=== PATIENT | female | born 1975 | race Caucasian/White ===

== ENCOUNTER 2019-09-25 11:51 | Inpatient (IN) | payer OTHER ==
[2019-09-25 12:30] VITALS: BMI 21.6
--- NOTE | 2019-09-25 13:47 | HP ---
COWS - Scale Resting Pulse: 0= [place] 80 or Below Sweatin= Chills/Flushing Restless Observation: 1= Difficult to Sit Still Pupil Size: 0= Normal to Room Light Bone or Joint Aches: 1= Mild Discomfort Runny Nose/ Eye Tearin= Runny Nose/Eyes GI Upset > 30mins: 2= Nausea/Diarrhea Tremor Observation: 2= Slight Tremor Visible Yawning Observation: 1= 1-2x During Session Anxiety or Irritability: 1=Feels Anxious/Irritable Goose Flesh Skin: 0=Smooth Skin COWS Score: 11 CIWA Score Nausea/Vomitin Muscle Tremors: 3 Anxiety: 2 Agitation: 3 Paroxysmal Sweats: No Perspiration Orientation: 1-Uncertain about Date Tacttile Disturbances: 0-None Auditory Disturbances: 0-None Visual Disturbances: 0-None Headache: 2-Mild CIWA-Ar Total Score: 14 - Admission Criteria OASAS Guidelines: Admission for Medically Managed Detox: Requires at least one of the followin. CIWA greater than 12 2. Seizures within the past 24 hours 3. Delirium tremens within the past 24 hours 4. Hallucinations within the past 24 hours 5. Acute intervention needed for co occurring medical disorder 6. Acute intervention needed for co occurring psychiatric disorder 7. Severe withdrawal that cannot be handled at a lower level of care (continued vomiting, continued diarrhea, abnormal vital signs) requiring intravenous medication and/or fluids 8. Patient presents the following: CIWA greater than 12 Admission Criteria Met: Admission criteria met Admitting History and Physical - Admission History Source: Patient Limitations to Obtaining History: No Limitations - Past Medical History Psych: Yes: Addictions, Bipolar Musculoskeletal: Yes: Chronic low back pain Admission [facility] Chief Complaint: I have to stop, for my son, he's not stupid, he knows something is going on Allergies/Adverse Reactions: Allergies Allergy/AdvReac Type Severity Reaction Status Date / Time amoxicillin Allergy Intermediate Hives Verified 09/25/19 12:20 History of Present Illness: 44 yo woman here for detox from opiates and alcohol. Noted to be prescribed hydrocodone - she states she has chronic pain from back, shoulder and ankle - states she does not abuse this nor does she abuse the alprazolam - states takes as prescribed. She does use heroin - not sure why buprenorphine is in her urine tox. Also uses cocaine and alcohol. Last time here was 2010 - she did okay, was in [facility] - released in may 2017- was in [place] for a while with her mother - came to [place] in June 2019. She relapsed two years ago. Never on methadone or suboxone program. Patient lives in a house, she is not on disability. [facility] Others' Prescriptions Patient Name: Henna Fritz Date: 1975 Address: [address] [place], [place] [address], [place] [address] Sex: Female Rx Written Rx Dispensed Drug Quantity Days Supply Prescriber Name 09/15/2019 09/15/2019 hydrocodone-acetaminophen 10-325 mg tablet 120 30 Mendez Harman MD 08/17/2019 08/17/2019 hydrocodone-acetaminophen 10-325 mg tablet 120 30 Mendez Harman MD 07/16/2019 07/18/2019 hydrocodone-acetaminophen 10-325 mg tablet 120 30 Mendez Harman MD 06/18/2019 06/18/2019 hydrocodone-acetaminophen 10-325 mg tablet 120 30 Mendez Harman MD 02/15/2019 02/16/2019 hydrocodone-acetaminophen 10-325 mg tablet 120 30 Mendez Harman MD 01/25/2019 01/27/2019 hydrocodone-acetaminophen 10-325 mg tablet 60 15 Mendez Harman MD 01/14/2019 01/14/2019 alprazolam 1 mg tablet 30 30 Long, Janes Patient Name: Henna Fritz Date: 1975 Address: [address] [place] [id number] Sex: Female Rx Written Rx Dispensed Drug Quantity Days Supply Prescriber Name 08/20/2019 08/22/2019 alprazolam 1 mg tablet 30 30 Chandani, Janes 07/21/2019 07/23/2019 alprazolam 1 mg tablet 30 30 Chandani, Janes 06/22/2019 06/22/2019 alprazolam 1 mg tablet 30 30 Chandani, Janes 02/17/2019 02/18/2019 alprazolam 1 mg tablet 30 30 Chandani, Janes 12/30/2018 12/31/2018 hydrocodone-acetaminophen 10-325 mg tablet 98 25 Mendez Harman MD 12/16/2018 12/18/2018 hydrocodone-acetaminophen 7.5-325 mg tablet 60 30 Cresencio Vega MD 12/14/2018 12/14/2018 alprazolam 1 mg tablet 30 30 Chandwild, Janes 11/16/2018 11/18/2018 hydrocodone-acetaminophen 10-325 mg tablet 60 30 Silvia, Cresencio Perez MD 11/11/2018 11/13/2018 alprazolam 1 mg tablet 30 30 Chandani, Janes 10/14/2018 10/19/2018 hydrocodone-acetaminophen 10-325 mg tablet 60 30 Silvia, Cresencio Perez MD 10/13/2018 10/14/2018 alprazolam 1 mg tablet 30 30 Chandani, Janes * - Drugs marked with an asterisk are compound drugs. If the compound drug is made up of more than one controlled substance, then each controlled substance will be a separate row in the table. Exam Limitations: No Limitations - Ebola screening Have you traveled outside of the country in the last 21 days: No Have you had contact with anyone from an Ebola affected area: No Have you been sick,other than usual withdrawal symptoms: No Do you have a fever: No - Review of Systems Constitutional: Chills, Loss of Appetite, Changes in sleep, Weakness, Unintentional Wgt. Loss EENT: reports: Nose Congestion Respiratory: reports: No Symptoms reported Cardiac: reports: No Symptoms Reported GI: reports: Poor Appetite, Indigestion : reports: No Symptoms Reported Musculoskeletal: reports: Back Pain, Joint Pain, Muscle Pain Integumentary: reports: Bruising Neuro: reports: Headache, Tremors, Weakness Endocrine: reports: No Symptoms Reported Hematology: reports: No Symptoms Reported Psychiatric: reports: Judgement Intact, Mood/Affect Appropiate, Orientated x3, Anxious Other Systems: Reviewed and Negative Patient History - Patient Medical History Hx Anemia: No Hx Asthma: Yes Hx Chronic Obstructive Pulmonary Disease (COPD): No Hx Cancer: No Hx Congestive Heart Failure: No Hx Hypertension: No Hx Hypercholesterolemia: No HX Cerebrovascular Accident: No Hx Seizures: No Hx Dementia: No Hx Diabetes: No Hx Gastrointestinal Disorders: Yes (GERD) Hx Liver Disease: No Hx Genitourinary Disorders: No Hx Sexually Transmitted Disorders: No Hx Renal Disease (ESRD): No Hx Thyroid Disease: No Hx Human Immunodeficiency Virus (HIV): No Hx Hepatitis C: Yes (treated 2008) Hx Depression: Yes (ptsd, on meds) Hx Suicide Attempt: Yes (many years ago as teen) Hx Bipolar Disorder: Yes (hospitalized 2017) Hx Schizophrenia: No Other Medical History: back pain spondylosis,DDD,right rotator cuff tear; rt ankle pain (chronic) - Patient Surgical History Hx Orthopedic Surgery: Yes (left thigh stitches from barbed wire injury) - PPD History Previous Implant?: Yes Documented Results: Negative w/o proof Implanted On Prior [facility] Admission?: Yes PPD to be Administered?: Yes - Reproductive History Patient is a Female of Child Bearing Age (11 -55 yrs old): Yes - Smoking Cessation Smoking history: Current every day smoker Have you smoked in the past 12 months: Yes Aproximately how many cigarettes per day: 10 Initiated information on smoking cessation: Yes 'Breaking Loose' booklet given: 09/25/19 (give on floor) - Substance & Tx. History Hx Alcohol Use: Yes Hx Substance Use: Yes Substance Use Type: Alcohol, Cocaine, Heroin Hx Substance Use Treatment: Yes - Substances abused Alcohol Frequency: 3-6 times per week Amount used: 3 six oz glasses of vodka Age of first use: 10 (states 3 -4x/week) Date of last use: 09/14/19 Heroin Substance route: Injection Frequency: Daily Amount used: 5-10 bags Age of first use: 17 Date of last use: 09/24/19 Marijuana/Hashish Substance route: Oral Frequency: 1-2 times per week Amount used: 1 joint Age of first use: 10 Date of last use: 09/18/19 Cocaine Substance route: Smoking Frequency: Daily Amount used: 1/2 gm Age of first use: 17 Date of last use: 09/24/19 Admission Physical Exam S - Vital Signs Vital Signs: Vital Signs - 24 hr 09/25/19 12:26 Temperature 97.0 F L Pulse Rate 73 Respiratory 16 Rate Blood Pressure 124/74 - Physical General Appearance: Yes: Nourished, Appropriately Dressed, Moderate Distress, Thin, Anxious HEENTM: Yes: Hearing grossly Normal, Normocephalic, Normal Voice, Nasal Congestion, Rhinorrhea Respiratory: Yes: Normal Breath Sounds, No Respiratory Distress Neck: Yes: No masses,lesions,Nodules Breast: Yes: Breast Exam Deferred Cardiology: Yes: Regular Rhythm, Regular Rate Abdominal: Yes: Flat, Soft Genitourinary: Yes: Within Normal Limits Back: Yes: Normal Inspection Musculoskeletal: Yes: Gait Steady, Joint Stiffness Extremities: Yes: Normal Inspection, Non-Tender, Tremors, Other (right shoulder with limitted ROM) Neurological: Yes: Fully Oriented, Alert, Normal Mood/Affect, Normal Response Integumentary: Yes: Normal Color, Warm, Track [place], Other (bruising both legs - states due to falls) Lymphatic: Yes: Within Normal Limits - Diagnostic (1) Opioid dependence, uncomplicated Current Visit: Yes Status: Chronic (2) Alcohol dependence, uncomplicated Current Visit: Yes Status: Chronic (3) Nicotine dependence Current Visit: Yes Status: Chronic Qualifiers: Nicotine product type: cigarettes Substance use status: uncomplicated Qualified Code(s): F17.210 - Nicotine dependence, cigarettes, uncomplicated (4) Cocaine dependence Current Visit: Yes Status: Chronic Qualifiers: Substance use status: uncomplicated Qualified Code(s): F14.20 - Cocaine dependence, uncomplicated (5) Marijuana dependence Current Visit: Yes Status: Chronic (6) Chronic back pain Current Visit: Yes Status: Acute Qualifiers: Back pain location: low back pain Back pain laterality: bilateral Sciatica presence: without sciatica Qualified Code(s): M54.5 - Low back pain; G89.29 - Other chronic pain (7) Chronic pain in left shoulder Current Visit: Yes Status: Chronic (8) Chronic pain of right ankle Current Visit: Yes Status: Chronic (9) Asthma Current Visit: Yes Status: Acute Qualifiers: Asthma severity: mild Asthma persistence: intermittent Asthma complication type: uncomplicated Qualified Code(s): J45.20 - Mild intermittent asthma, uncomplicated Cleared for Admission S - Detox or Rehab [facility] Level of Care: Medically Managed Detox Regimen/Protocol: Ativan, Methadone Breathalyzer - Breathalyzer Breathalyzer: 0 Urine Drug Screen - Test Device Lot number: [id number] Expiration date: 07/17/21 - Control Is test valid?: Yes - Results Drug screen NEGATIVE: No Urine drug screen results: THC-Marijuana, DEMETRIO-Cocaine, FEN-Fentanyl, MOP-Opiates , BZO-Benzodiazepines, BUP-Suboxone Inpatient Rehab Admission - Rehab Decision to Admit Inpatient rehab admission?: No
[2019-09-25] MEDS ORDERED: IBUPROFEN 400 MG TABLET (FP) PO PRN (14:00)
[2019-09-25] MEDS ORDERED: cloNIDine HCL 0.1 MG TABLET PO PRN (14:00)
[2019-09-25] MEDS ORDERED: METHADONE HCL 10 MG TABLET (FOR DETOX USE ONLY) PO ONE (14:00)
[2019-09-25] MEDS ORDERED: MAGNESIUM HYDROX 2400MG/30ML ORAL SUSPENSION 30 ML CUP PO PRN (14:00)
[2019-09-25] MEDS ORDERED: MAGNESIUM CITRATE 300 ML BOTTLE PO PRN (14:00)
[2019-09-25] MEDS ORDERED: METHOCARBAMOL 500 MG TABLET PO PRN (14:00)
[2019-09-25] MEDS ORDERED: LORazepam 1 MG TABLET PO PRN (14:00)
[2019-09-25] MEDS ORDERED: MAG HYDROX/AL HYDROX/SIMETH 30 ML UNIT-DOSE CUP PO PRN (14:00)
[2019-09-25] MEDS ORDERED: ACETAMINOPHEN 325 MG TABLET (FP) PO PRN ×2 (14:00)
[2019-09-25] MEDS ORDERED: MENTHOL/PHENOL 1 EACH UD MM PRN (14:00)
[2019-09-25] MEDS ORDERED: BISMUTH SUBSALICYLATE 524 MG/30 ML UD PO PRN (14:00)
[2019-09-25] MEDS ORDERED: ALBUTEROL SO4 HFA INHALER IH PRN (14:17)
[2019-09-25] MEDS ORDERED: LORazepam 2 MG TABLET PO ONE (14:30)
--- NOTE | 2019-09-25 14:36 | EKG ---
Test Reason : Blood Pressure : / mmHG Vent. Rate : 071 BPM Atrial Rate : 071 BPM P-R Int : 184 ms QRS Dur : 084 ms QT Int : 394 ms P-R-T Axes : 069 050 030 degrees QTc Int : 428 ms NORMAL SINUS RHYTHM POSSIBLE LEFT ATRIAL ENLARGEMENT BORDERLINE ECG Confirmed by MD ALICE, FREDDIE ([id number]) on 09/25/2019 2:36:06 PM Referred By: Confirmed By:FREDDIE JENKINS MD
[2019-09-25] MEDS: NICOTINE 21 MG/24 HOURS TOPICAL PATCH TD SCH (14:56)
[2019-09-25] MEDS: LORazepam 2 MG TABLET PO SCH ×2 (17:51→22:59)
[2019-09-25] MEDS ORDERED: MELATONIN 5 MG TABLETS PO PRN (22:00)
[2019-09-25] MEDS ORDERED: LITHIUM CARBONATE 300 MG CAPSULE (FP) PO ONE (22:00)
[2019-09-25] MEDS ORDERED: traZODone HCL 100 MG TABLET (FP) PO ONE (22:00)
[2019-09-25] MEDS: THIAMINE HCL 100 MG TABLET (FP) PO SCH (22:59)
[2019-09-26] MEDS: LORazepam 2 MG TABLET PO SCH ×4 (06:39→22:45)
[2019-09-26] MEDS ORDERED: METHADONE HCL 10 MG TABLET (FOR DETOX USE ONLY) ONE (09:13)
[2019-09-26] MEDS ORDERED: METHADONE HCL 5 MG TABLET (FOR DETOX USE ONLY) ONE (09:13)
[2019-09-26] MEDS ORDERED: METHADONE (DETOX) 20 MG, METHADONE (DETOX) 5 MG PO ONE (10:00)
[2019-09-26] MEDS ORDERED: buPROPion HCL 100 MG TABLET PO ONE (10:00)
[2019-09-26 10:10] LABS: HEMATOCRIT 42.2 % (32.4-45.2); HEMOGLOBIN 14.3 GM/dL (10.7-15.3); MCH 30.2 pg (25.7-33.7); MCHC 33.9 g/dl (32.0-36.0); MEAN CELL VOLUME 88.8 fl (80-96); MEAN PLT VOLUME 8.8 fl (7.5-11.1); PLATELET COUNT 351 K/MM3 (134-434); RBC 4.75 M/mm3 (3.60-5.2); RDW 13.4 % (11.6-15.6); WHITE BLOOD COUNT 6.1 K/mm3 (4.0-10.0)
[2019-09-26] MEDS: NICOTINE 21 MG/24 HOURS TOPICAL PATCH TD SCH (10:21)
[2019-09-26] MEDS: PRENATAL VITAMINS W/ FOLIC ACID TABLET (FP) PO SCH (10:21)
[2019-09-26 10:42] LABS: ALBUMIN 3.2 g/dl (3.4-5.0); BILIRUBIN,TOTAL 0.6 mg/dL (0.2-1); BLOOD UREA NITROGEN 14.5 mg/dL (7-18); CALCIUM 9.4 mg/dL (8.5-10.1); CREATININE 0.8 mg/dL (0.55-1.3); POTASSIUM 4.4 mmol/L (3.5-5.1); TOT PROT 7.3 g/dl (6.4-8.2)
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
--- NOTE | 2019-09-26 16:11 | PN ---
S CIWA - CIWA Score Nausea/Vomitin-Mild Nausea/No Vomiting Muscle Tremors: 2 Anxiety: 2 Agitation: 2 Paroxysmal Sweats: 2 Orientation: 0-Oriented Tacttile Disturbances: 0-None Auditory Disturbances: 0-None Visual Disturbances: 0-None Headache: 0-None Present CIWA-Ar Total Score: 9 BHS COWS - Scale Resting Pulse: 1= [place] 81-100 Sweatin= Chills/Flushing Restless Observation: 0= Sits Still Pupil Size: 0= Normal to Room Light Bone or Joint Aches: 0= None Runny Nose/ Eye Tearin= Runny Nose/Eyes GI Upset > 30mins: 2= Nausea/Diarrhea Tremor Observation of Outstretched Hands: 2= Slight Tremor Visible Yawning Observation: 0= None Anxiety or Irritability: 2=Irritable/Anxious Goose Flesh Skin: 0=Smooth Skin COWS Score: 10 BHS Progress Note (SOAP) Subjective: Patient asleep but aroused easily, refused to speak with junior copywriter. Objective: 09/26/19 16:09 Last Vital Signs Temp Pulse Resp BP Pulse Ox 98.2 F 96 H 18 133/72 09/26/19 12:32 09/26/19 12:32 09/26/19 12:32 09/26/19 12:32 Laboratory Tests 09/26/19 09/26/19 09/26/19 07:20 07:20 07:20 WBC 6.1 RBC 4.75 Hgb 14.3 Hct 42.2 MCV 88.8 MCH 30.2 MCHC 33.9 RDW 13.4 Plt Count 351 MPV 8.8 Sodium 138 Potassium 4.4 Chloride 106 Carbon Dioxide 27 Anion Gap 6 L BUN 14.5 Creatinine 0.8 Est GFR (CKD-EPI)AfAm 103.19 Est GFR (CKD-EPI)NonAf 89.04 Random Glucose 129 H Calcium 9.4 Total Bilirubin 0.6 AST 15 ALT 19 Alkaline Phosphatase 84 Total Protein 7.3 Albumin 3.2 L RPR Titer Nonreactive Labs reviewed: serum glucose 129 (high) Assessment: 09/26/19 16:10 Withdrawal sxs Hyperglycemia noted Plan: Continue detox Encouraged PO water intake Hyperglycemia: denies DM, repeat fasting glucose, check A1c
[2019-09-26] MEDS ORDERED: LITHIUM CARBONATE 300 MG CAPSULE (FP) PO SCH (22:00)
[2019-09-26] MEDS ORDERED: traZODone HCL 100 MG TABLET (FP) PO SCH (22:00)
[2019-09-26] MEDS: THIAMINE HCL 100 MG TABLET (FP) PO SCH (22:42)
[2019-09-27] MEDS: LORazepam 1 MG TABLET PO SCH ×2 (06:39→11:04)
[2019-09-27] MEDS ORDERED: METHADONE HCL 10 MG TABLET (FOR DETOX USE ONLY) PO ONE (10:00)
[2019-09-27] MEDS ORDERED: buPROPion HCL 100 MG TABLET PO SCH ×2 (10:00→18:00)
[2019-09-27] MEDS: NICOTINE 21 MG/24 HOURS TOPICAL PATCH TD SCH (11:05)
[2019-09-27] MEDS: PRENATAL VITAMINS W/ FOLIC ACID TABLET (FP) PO SCH (11:05)
[2019-09-27 11:34] VITALS: BP 135/80; PULSE 99; TEMP 98.2
--- NOTE | 2019-09-27 12:06 | PN ---
[facility] CIWA - CIWA Score Nausea/Vomitin-No Nausea/No Vomiting Muscle Tremors: 3 Anxiety: 2 Agitation: 3 Paroxysmal Sweats: 2 Orientation: 0-Oriented Tacttile Disturbances: 0-None Auditory Disturbances: 0-None Visual Disturbances: 0-None Headache: 0-None Present CIWA-Ar Total Score: 10 BHS COWS - Scale Resting Pulse: 1= [place] 81-100 Sweatin= No chills or Flushing Restless Observation: 1= Difficult to Sit Still Pupil Size: 0= Normal to Room Light Bone or Joint Aches: 2= Severe Diffuse Aches Runny Nose/ Eye Tearin= Runny Nose/Eyes GI Upset > 30mins: 0= None Tremor Observation of Outstretched Hands: 1= Tremor [place], Not Seen Yawning Observation: 1= 1-2x During Session Anxiety or Irritability: 2=Irritable/Anxious Goose Flesh Skin: 0=Smooth Skin COWS Score: 10 [facility] Progress Note (SOAP) Subjective: shakes sweats irritable tired body aches chills Objective: 09/27/19 12:07 Vital Signs Temperature 98.2 F 09/27/19 09:00 Pulse Rate 99 H 09/27/19 09:00 Respiratory Rate 18 09/27/19 09:00 Blood Pressure 135/80 09/27/19 09:00 O2 Sat by Pulse Oximetry (%) Laboratory Tests 09/26/19 09/26/19 09/26/19 07:20 07:20 07:20 WBC 6.1 RBC 4.75 Hgb 14.3 Hct 42.2 MCV 88.8 MCH 30.2 MCHC 33.9 RDW 13.4 Plt Count 351 MPV 8.8 Sodium 138 Potassium 4.4 Chloride 106 Carbon Dioxide 27 Anion Gap 6 L BUN 14.5 Creatinine 0.8 Est GFR (CKD-EPI)AfAm 103.19 Est GFR (CKD-EPI)NonAf 89.04 Random Glucose 129 H Calcium 9.4 Total Bilirubin 0.6 AST 15 ALT 19 Alkaline Phosphatase 84 Total Protein 7.3 Albumin 3.2 L RPR Titer Nonreactive aaox3 ambulating no acute distress Assessment: 09/27/19 12:07 withdrawals Plan: continue detox increase fluids
--- NOTE | 2019-09-27 15:26 | PN ---
S Progress Note Note: pt refused to stay and complete his detox; pt wants to leave because her friend who is being d/c today is her ride and wants to go with her. Pt was advised to stay and complete her detox to prevent relapse, seizures, Dt, OD and or loss, pt chose to sign out AMA.
--- NOTE | 2019-09-27 15:29 | DS ---
[facility] Detox Discharge Summary Admission Date: 09/25/19 - History Present History: Alcohol Dependence, Cannabis Dependence, Cocaine Dependence, Opioid Dependence - Physical Exam Results Vital Signs: Vital Signs Temperature 98.2 F 09/27/19 09:00 Pulse Rate 99 H 09/27/19 09:00 Respiratory Rate 18 09/27/19 09:00 Blood Pressure 135/80 09/27/19 09:00 O2 Sat by Pulse Oximetry (%) Pertinent Admission Physical Exam Findings: Vital Signs Temperature 98.2 F 09/27/19 09:00 Pulse Rate 99 H 09/27/19 09:00 Respiratory Rate 18 09/27/19 09:00 Blood Pressure 135/80 09/27/19 09:00 O2 Sat by Pulse Oximetry (%) Laboratory Tests 09/26/19 09/26/19 09/26/19 07:20 07:20 07:20 WBC 6.1 RBC 4.75 Hgb 14.3 Hct 42.2 MCV 88.8 MCH 30.2 MCHC 33.9 RDW 13.4 Plt Count 351 MPV 8.8 Sodium 138 Potassium 4.4 Chloride 106 Carbon Dioxide 27 Anion Gap 6 L BUN 14.5 Creatinine 0.8 Est GFR (CKD-EPI)AfAm 103.19 Est GFR (CKD-EPI)NonAf 89.04 Random Glucose 129 H Calcium 9.4 Total Bilirubin 0.6 AST 15 ALT 19 Alkaline Phosphatase 84 Total Protein 7.3 Albumin 3.2 L RPR Titer Nonreactive HIV 1&2 Antibody Screen HIV P24 Antigen 09/26/19 07:20 WBC RBC Hgb Hct MCV MCH MCHC RDW Plt Count MPV Sodium Potassium Chloride Carbon Dioxide Anion Gap BUN Creatinine Est GFR (CKD-EPI)AfAm Est GFR (CKD-EPI)NonAf Random Glucose Calcium Total Bilirubin AST ALT Alkaline Phosphatase Total Protein Albumin RPR Titer HIV 1&2 Antibody Screen Cancelled HIV P24 Antigen Cancelled aaox3 ambulating goose bumps noted on skin pt in withdrawals but chose to sign out AMA; referral provided d/c appox @30min - Treatment Hospital Course: Rehab Referral Accepted - Medication Discharge Medications: Ambulatory Orders Albuterol Sulfate [Proair Hfa] 8.5 gm IH BID PRN 09/25/19 Bupropion HCl [Wellbutrin -] 200 mg PO DAILY 09/25/19 Peak Carbonate [Eskalith -] 300 mg PO HS 09/25/19 traZODone HCL [Trazodone HCl] 100 mg PO HS 09/25/19 - Diagnosis (1) Alcohol dependence, uncomplicated Status: Chronic (2) Asthma Status: Chronic Qualifiers: Asthma severity: mild Asthma persistence: intermittent Asthma complication type: uncomplicated Qualified Code(s): J45.20 - Mild intermittent asthma, uncomplicated (3) Cannabis dependence Status: Chronic (4) Chronic back pain Status: Chronic Qualifiers: Back pain location: low back pain Back pain laterality: bilateral Sciatica presence: without sciatica Qualified Code(s): M54.5 - Low back pain; G89.29 - Other chronic pain (5) Cocaine dependence Status: Chronic Qualifiers: Substance use status: uncomplicated Qualified Code(s): F14.20 - Cocaine dependence, uncomplicated (6) Opioid dependence, uncomplicated Status: Chronic (7) Substance induced mood disorder Status: Acute (8) Substance-induced sleep disorder Status: Acute (9) Bipolar II disorder Status: Chronic (10) Chronic pain in left shoulder Status: Chronic (11) Chronic pain of right ankle Status: Chronic (12) Marijuana dependence Status: Chronic (13) Nicotine dependence Status: Chronic Qualifiers: Nicotine product type: cigarettes Substance use status: uncomplicated Qualified Code(s): F17.210 - Nicotine dependence, cigarettes, uncomplicated (14) PTSD (post-traumatic stress disorder) Status: Chronic - AMA Did Patient Leave Against Medical Advice: Yes
[2019-09-28] MEDS ORDERED: LORazepam 0.5 MG TABLET PO PRN
[2019-09-28] MEDS ORDERED: LORazepam 0.5 MG TABLET PO SCH (05:00)
[2019-09-28] MEDS ORDERED: METHADONE (DETOX) 10 MG, METHADONE (DETOX) 5 MG PO ONE (10:00)
[2019-09-29] MEDS ORDERED: LORazepam 0.5 MG TABLET PO ONE (05:00)
[2019-09-29] MEDS ORDERED: METHADONE HCL 10 MG TABLET (FOR DETOX USE ONLY) PO ONE (10:00)
[2019-09-30] MEDS ORDERED: METHADONE HCL 5 MG TABLET (FOR DETOX USE ONLY) PO ONE (06:00)
== END 2019-09-27 13:08 | disposition left against medical advice (07) | DRG 770 ==
LOC: YASAS 11:51 → Y6N 14:23
PROVIDERS: ADMIT Allergy & Immunology; ATTEND Allergy & Immunology
PROC: HZ2ZZZZ Detoxification Services for Substance Abuse Treatment (ICD-10-PCS; principal; 2019-09-25)
DX: F11.23 Opioid dependence with withdrawal (principal); F10.230 Alcohol dependence with withdrawal, uncomplicated; F14.20 Cocaine dependence, uncomplicated; F12.20 Cannabis dependence, uncomplicated; F17.210 Nicotine dependence, cigarettes, uncomplicated; F43.10 Post-traumatic stress disorder, unspecified; F31.81 Bipolar II disorder; F19.24 Other psychoactive substance dependence with psychoactive substance-induced mood disorder; F19.282 Other psychoactive substance dependence with psychoactive substance-induced sleep disorder; J45.20 Mild intermittent asthma, uncomplicated; M54.5 Low back pain; M25.512 Pain in left shoulder; M25.571 Pain in right ankle and joints of right foot; G89.29 Other chronic pain; R73.9 Hyperglycemia, unspecified; K21.9 Gastro-esophageal reflux disease without esophagitis; Z88.1 Allergy status to other antibiotic agents; Z86.19 Personal history of other infectious and parasitic diseases; Z62.810 Personal history of physical and sexual abuse in childhood; Z91.5 Personal history of self-harm
CPT/HCPCS: 36415; 80053; 85027; 86593; 87389; 93005; 93010

== ENCOUNTER 2020-09-18 03:06 | Inpatient (IN) | payer OTHER ==
[2020-09-18 03:50] VITALS: BMI 23.7
[2020-09-18] MEDS ORDERED: METHADONE HCL 10 MG TABLET (FOR DETOX USE ONLY) PO ONE (04:09)
[2020-09-18] MEDS ORDERED: MAGNESIUM CITRATE 300 ML BOTTLE PO PRN (04:09)
[2020-09-18] MEDS ORDERED: ONDANSETRON *ODT* 4 MG TABLET SL PRN (04:09)
[2020-09-18] MEDS ORDERED: BISMUTH SUBSALICYLATE 524 MG/30 ML UD PO PRN (04:09)
[2020-09-18] MEDS ORDERED: MAG HYDROX/AL HYDROX/SIMETH 30 ML UNIT-DOSE CUP PO PRN (04:09)
[2020-09-18] MEDS ORDERED: MAGNESIUM HYDROX 2400MG/30ML ORAL SUSPENSION 30 ML CUP PO PRN (04:09)
[2020-09-18] MEDS ORDERED: ACETAMINOPHEN 325 MG TABLET (FP) PO PRN (04:09)
[2020-09-18] MEDS ORDERED: MENTHOL/PHENOL 1 EACH UD MM PRN (04:09)
[2020-09-18] MEDS: PRENATAL VITAMINS W/ FOLIC ACID TABLET (FP) PO SCH (10:53)
[2020-09-18] MEDS: NICOTINE 21 MG/24 HOURS TOPICAL PATCH TD SCH (10:53)
[2020-09-18] MEDS: cloNIDine HCL 0.1 MG TABLET PO PRN (17:26)
[2020-09-18] MEDS: traZODone HCL 50 MG TABLET (FP) PO SCH (21:47)
[2020-09-18] MEDS: THIAMINE HCL 100 MG TABLET (FP) PO SCH (21:47)
[2020-09-18] MEDS: MELATONIN 5 MG TABLETS PO SCH (21:48)
[2020-09-19] MEDS ORDERED: METHADONE HCL 10 MG TABLET (FOR DETOX USE ONLY) ONE (09:14)
[2020-09-19] MEDS: PRENATAL VITAMINS W/ FOLIC ACID TABLET (FP) PO SCH (09:14)
[2020-09-19] MEDS ORDERED: METHADONE HCL 5 MG TABLET (FOR DETOX USE ONLY) ONE (09:14)
[2020-09-19] MEDS: NICOTINE 21 MG/24 HOURS TOPICAL PATCH TD SCH (09:16)
[2020-09-19] MEDS ORDERED: METHADONE (DETOX) 20 MG, METHADONE (DETOX) 5 MG PO ONE (10:00)
[2020-09-19 11:40] LABS: HEMATOCRIT 36.9 % (32.4-45.2); HEMOGLOBIN 12.5 GM/dL (10.7-15.3); MCH 28.6 pg (25.7-33.7); MCHC 33.8 g/dl (32.0-36.0); MEAN CELL VOLUME 84.6 fl (80-96); MEAN PLT VOLUME 8.9 fl (7.5-11.1); PLATELET COUNT 247 K/MM3 (134-434); RBC 4.36 M/mm3 (3.60-5.2); RDW 14.3 % (11.6-15.6); WHITE BLOOD COUNT 4.1 K/mm3 (4.0-10.0)
[2020-09-19 11:45] LABS: POTASSIUM 4.2 mmol/L (3.5-5.1)
[2020-09-19 12:01] LABS: ALBUMIN 3.2 g/dl (3.4-5.0); BLOOD UREA NITROGEN 10.9 mg/dL (7-18); CALCIUM 9.4 mg/dL (8.5-10.1)
[2020-09-19 12:03] LABS: CREATININE 0.7 mg/dL (0.55-1.3)
[2020-09-19 12:04] LABS: BILIRUBIN,TOTAL 0.3 mg/dL (0.2-1); TOT PROT 7.9 g/dl (6.4-8.2)
[2020-09-19] MEDS: METHOCARBAMOL 500 MG TABLET PO PRN (17:28)
[2020-09-19] MEDS: diazePAM 5 MG TABLET PO PRN ×2 (17:28→22:07)
[2020-09-19] MEDS: traZODone HCL 50 MG TABLET (FP) PO SCH (22:06)
[2020-09-19] MEDS: THIAMINE HCL 100 MG TABLET (FP) PO SCH (22:06)
[2020-09-19] MEDS: MELATONIN 5 MG TABLETS PO SCH (22:07)
[2020-09-19] MEDS: cloNIDine HCL 0.1 MG TABLET PO PRN (22:07)
[2020-09-20] MEDS: PRENATAL VITAMINS W/ FOLIC ACID TABLET (FP) PO SCH (09:29)
[2020-09-20] MEDS: NICOTINE 21 MG/24 HOURS TOPICAL PATCH TD SCH (09:29)
[2020-09-20] MEDS: diazePAM 5 MG TABLET PO PRN ×4 (09:29→22:07)
[2020-09-20] MEDS: METHOCARBAMOL 500 MG TABLET PO PRN ×2 (09:29→17:28)
[2020-09-20] MEDS ORDERED: METHADONE HCL 10 MG TABLET (FOR DETOX USE ONLY) PO ONE (10:00)
[2020-09-20] MEDS: GABAPENTIN 300 MG CAPSULE PO SCH ×2 (14:32→22:05)
[2020-09-20] MEDS: THIAMINE HCL 100 MG TABLET (FP) PO SCH (22:05)
[2020-09-20] MEDS: traZODone HCL 50 MG TABLET (FP) PO SCH (22:05)
[2020-09-20] MEDS: MELATONIN 5 MG TABLETS PO SCH (22:06)
[2020-09-21] MEDS ORDERED: METHADONE HCL 10 MG TABLET (FOR DETOX USE ONLY) ONE (08:41)
[2020-09-21] MEDS ORDERED: METHADONE HCL 5 MG TABLET (FOR DETOX USE ONLY) ONE (08:41)
[2020-09-21] MEDS: PRENATAL VITAMINS W/ FOLIC ACID TABLET (FP) PO SCH (09:26)
[2020-09-21] MEDS: GABAPENTIN 300 MG CAPSULE PO SCH ×2 (09:29→21:50)
[2020-09-21] MEDS: METHOCARBAMOL 500 MG TABLET PO PRN ×3 (09:29→21:50)
[2020-09-21] MEDS: diazePAM 5 MG TABLET PO PRN ×3 (09:29→18:43)
[2020-09-21] MEDS: NICOTINE 21 MG/24 HOURS TOPICAL PATCH TD SCH (09:32)
[2020-09-21] MEDS ORDERED: METHADONE (DETOX) 10 MG, METHADONE (DETOX) 5 MG PO ONE (10:00)
[2020-09-21] MEDS: ACETAMINOPHEN 325 MG TABLET (FP) PO PRN ×2 (10:26→17:39)
[2020-09-21] MEDS: ALBUTEROL SO4 HFA INHALER IH PRN ×2 (13:56→18:44)
[2020-09-21] MEDS: NICOTINE POLACRILEX 2 MG GUM BUC PRN ×2 (19:31→21:53)
[2020-09-21] MEDS: IBUPROFEN 400 MG TABLET (FP) PO PRN (20:36)
[2020-09-21] MEDS: THIAMINE HCL 100 MG TABLET (FP) PO SCH (21:49)
[2020-09-21] MEDS: MELATONIN 5 MG TABLETS PO SCH (21:51)
[2020-09-21] MEDS: traZODone HCL 50 MG TABLET (FP) PO SCH (21:51)
[2020-09-22] MEDS ORDERED: METHADONE HCL 10 MG TABLET (FOR DETOX USE ONLY) PO ONE (10:00)
[2020-09-22] MEDS: GABAPENTIN 300 MG CAPSULE PO SCH ×2 (10:04→22:22)
[2020-09-22] MEDS: PRENATAL VITAMINS W/ FOLIC ACID TABLET (FP) PO SCH (10:04)
[2020-09-22] MEDS: NICOTINE 21 MG/24 HOURS TOPICAL PATCH TD SCH (10:05)
[2020-09-22] MEDS: METHOCARBAMOL 500 MG TABLET PO PRN ×2 (10:05→17:41)
[2020-09-22] MEDS: diazePAM 5 MG TABLET PO PRN (13:07)
[2020-09-22] MEDS: ACETAMINOPHEN 325 MG TABLET (FP) PO PRN (13:08)
[2020-09-22] MEDS: IBUPROFEN 400 MG TABLET (FP) PO PRN (17:42)
[2020-09-22] MEDS: DIVALPROEX SODIUM 250 MG TABLET E.C. PO SCH (22:22)
[2020-09-22] MEDS: THIAMINE HCL 100 MG TABLET (FP) PO SCH (22:23)
[2020-09-22] MEDS: traZODone HCL 50 MG TABLET (FP) PO SCH (22:23)
[2020-09-22] MEDS: MELATONIN 5 MG TABLETS PO SCH (22:23)
[2020-09-23] MEDS ORDERED: METHADONE HCL 5 MG TABLET (FOR DETOX USE ONLY) PO ONE (06:00)
[2020-09-23] MEDS: METHOCARBAMOL 500 MG TABLET PO PRN (06:24)
[2020-09-23 06:35] VITALS: BP 100/64; PULSE 64; TEMP 97.3
[2020-09-23] MEDS: DIVALPROEX SODIUM 250 MG TABLET E.C. PO SCH (09:17)
[2020-09-23] MEDS: GABAPENTIN 300 MG CAPSULE PO SCH (09:18)
[2020-09-23] MEDS: PRENATAL VITAMINS W/ FOLIC ACID TABLET (FP) PO SCH (09:19)
[2020-09-23] MEDS: NICOTINE 21 MG/24 HOURS TOPICAL PATCH TD SCH (09:19)
== END 2020-09-23 09:20 | disposition other institution (70) | DRG 773 ==
LOC: YASAS 03:06 → Y3N 04:20
PROVIDERS: ADMIT Allergy & Immunology; ATTEND Allergy & Immunology
PROC: HZ2ZZZZ Detoxification Services for Substance Abuse Treatment (ICD-10-PCS; principal; 2020-09-18)
DX: F11.23 Opioid dependence with withdrawal (principal); F14.20 Cocaine dependence, uncomplicated; F12.20 Cannabis dependence, uncomplicated; F17.210 Nicotine dependence, cigarettes, uncomplicated; F19.24 Other psychoactive substance dependence with psychoactive substance-induced mood disorder; F31.9 Bipolar disorder, unspecified; F43.10 Post-traumatic stress disorder, unspecified; J45.20 Mild intermittent asthma, uncomplicated; G47.00 Insomnia, unspecified; G62.9 Polyneuropathy, unspecified; K21.9 Gastro-esophageal reflux disease without esophagitis; L30.9 Dermatitis, unspecified; M54.30 Sciatica, unspecified side; M79.7 Fibromyalgia; M47.819 Spondylosis without myelopathy or radiculopathy, site unspecified; M54.5 Low back pain; G89.29 Other chronic pain; Z62.810 Personal history of physical and sexual abuse in childhood
CPT/HCPCS: 36415; 80053; 80178; 82947; 85027; 86780; 93005; 93010; C9803; J0735; U0003

== ENCOUNTER 2021-06-09 12:35 | Inpatient (IN) | payer OTHER ==
[2021-06-09 13:02] VITALS: BMI 25.4
[2021-06-09] MEDS ORDERED: NICOTINE 10 MG CARTRIDGE (INHALER) IH PRN (13:39)
[2021-06-09] MEDS ORDERED: MAGNESIUM HYDROX 2400MG/30ML ORAL SUSPENSION 30 ML CUP PO PRN (13:39)
[2021-06-09] MEDS ORDERED: ACETAMINOPHEN 325 MG TABLET (FP) PO PRN ×2 (13:39)
[2021-06-09] MEDS ORDERED: MAG HYDROX/AL HYDROX/SIMETH 30 ML UNIT-DOSE CUP PO PRN (13:39)
[2021-06-09] MEDS ORDERED: BISMUTH SUBSALICYLATE 524 MG/30 ML PO PRN (13:39)
[2021-06-09] MEDS ORDERED: ONDANSETRON *ODT* 4 MG TABLET SL PRN (13:39)
[2021-06-09] MEDS ORDERED: IBUPROFEN 400 MG TABLET (FP) PO PRN (13:39)
[2021-06-09] MEDS ORDERED: MENTHOL/PHENOL 1 EACH UD MM PRN (13:39)
[2021-06-09] MEDS ORDERED: MAGNESIUM CITRATE 300 ML BOTTLE PO PRN (13:39)
[2021-06-09] MEDS ORDERED: methaDONE HCL 10 MG TABLET (FOR DETOX USE ONLY) PO ONE (13:39)
[2021-06-09] MEDS ORDERED: cloNIDine HCL 0.1 MG TABLET PO PRN (13:39)
[2021-06-09] MEDS ORDERED: ALBUTEROL SO4 HFA INHALER IH PRN (13:57)
[2021-06-09] MEDS: hydrOXYzine PAMOATE 25 MG CAPSULE (FP) PO SCH ×3 (16:10→22:00)
[2021-06-09] MEDS: METHOCARBAMOL 500 MG TABLET PO PRN (16:10)
[2021-06-09] MEDS: diazePAM 5 MG TABLET PO PRN (18:23)
[2021-06-09] MEDS: THIAMINE HCL 100 MG TABLET (FP) PO SCH (22:00)
[2021-06-09] MEDS: GABAPENTIN 300 MG CAPSULE PO SCH (22:00)
[2021-06-09] MEDS: MELATONIN 5 MG TABLETS PO SCH (22:00)
[2021-06-10] MEDS: METHOCARBAMOL 500 MG TABLET PO PRN ×3 (00:33→17:07)
[2021-06-10] MEDS: diazePAM 5 MG TABLET PO PRN ×5 (00:33→22:24)
[2021-06-10] MEDS: hydrOXYzine PAMOATE 25 MG CAPSULE (FP) PO SCH ×5 (06:11→22:22)
[2021-06-10] MEDS ORDERED: methaDONE HCL 10 MG TABLET (FOR DETOX USE ONLY) ONE (08:46)
[2021-06-10] MEDS: PANTOPRAZOLE 40 MG TABLET PO SCH (10:05)
[2021-06-10] MEDS: GABAPENTIN 300 MG CAPSULE PO SCH ×2 (10:05→22:22)
[2021-06-10] MEDS: NICOTINE 14 MG/24 HOURS TOPICAL PATCH TD SCH (10:05)
[2021-06-10] MEDS: PRENATAL VITAMINS W/ FOLIC ACID TABLET (FP) PO SCH (10:06)
[2021-06-10] MEDS: MELATONIN 5 MG TABLETS PO SCH (22:22)
[2021-06-10] MEDS: THIAMINE HCL 100 MG TABLET (FP) PO SCH (22:22)
[2021-06-11] MEDS ORDERED: diazePAM 5 MG TABLET PO SCH (06:00)
[2021-06-11] MEDS: diazePAM 5 MG TABLET PO PRN ×4 (07:24→22:22)
[2021-06-11] MEDS: METHOCARBAMOL 500 MG TABLET PO PRN ×3 (07:24→20:51)
[2021-06-11] MEDS: hydrOXYzine PAMOATE 25 MG CAPSULE (FP) PO SCH ×2 (07:25→10:41)
[2021-06-11] MEDS ORDERED: methaDONE HCL 10 MG TABLET (FOR DETOX USE ONLY) PO ONE (10:00)
[2021-06-11] MEDS: PRENATAL VITAMINS W/ FOLIC ACID TABLET (FP) PO SCH (10:31)
[2021-06-11] MEDS: PANTOPRAZOLE 40 MG TABLET PO SCH (10:31)
[2021-06-11] MEDS: GABAPENTIN 300 MG CAPSULE PO SCH ×2 (10:32→22:22)
[2021-06-11] MEDS: NICOTINE 14 MG/24 HOURS TOPICAL PATCH TD SCH (10:35)
[2021-06-11 15:07] LABS: HEMATOCRIT 46.4 % (32.4-45.2); HEMOGLOBIN 15.6 GM/dL (10.7-15.3); MCH 29.3 pg (25.7-33.7); MCHC 33.7 g/dl (32.0-36.0); MEAN CELL VOLUME 86.8 fl (80-96); PLATELET COUNT 306 10^3/uL (134-434); RBC 5.34 M/mm3 (3.60-5.2); RDW 12.7 % (11.6-15.6); WHITE BLOOD COUNT 6.1 K/mm3 (4.0-10.0)
[2021-06-11 15:10] LABS: BLOOD UREA NITROGEN 13.8 mg/dL (7-18); CALCIUM 10.5 mg/dL (8.5-10.1)
[2021-06-11 15:11] LABS: ALBUMIN 3.9 g/dl (3.4-5.0)
[2021-06-11 15:14] LABS: CREATININE 0.9 mg/dL (0.55-1.3)
[2021-06-11 15:16] LABS: BILIRUBIN,TOTAL 0.3 mg/dL (0.2-1)
[2021-06-11] MEDS: MELATONIN 5 MG TABLETS PO SCH (22:22)
[2021-06-11] MEDS: THIAMINE HCL 100 MG TABLET (FP) PO SCH (22:22)
[2021-06-12] MEDS ORDERED: methaDONE HCL 10 MG TABLET (FOR DETOX USE ONLY) ONE (09:01)
[2021-06-12] MEDS: diazePAM 5 MG TABLET PO PRN (09:15)
[2021-06-12] MEDS: NICOTINE 14 MG/24 HOURS TOPICAL PATCH TD SCH (10:22)
[2021-06-12] MEDS: GABAPENTIN 300 MG CAPSULE PO SCH ×2 (10:23→22:44)
[2021-06-12] MEDS: PANTOPRAZOLE 40 MG TABLET PO SCH (10:23)
[2021-06-12] MEDS: PRENATAL VITAMINS W/ FOLIC ACID TABLET (FP) PO SCH (10:23)
[2021-06-12] MEDS: METHOCARBAMOL 500 MG TABLET PO PRN ×2 (10:24→16:48)
[2021-06-12] MEDS: hydrOXYzine PAMOATE 25 MG CAPSULE (FP) PO PRN ×2 (10:27→15:35)
[2021-06-12] MEDS ORDERED: diazePAM 5 MG TABLET PO PRN (20:30)
[2021-06-12] MEDS ORDERED: diazePAM 5 MG TABLET PO ONE (20:30)
[2021-06-12] MEDS: cloNIDine HCL 0.1 MG TABLET PO PRN (20:42)
[2021-06-12] MEDS ORDERED: traZODone HCL 100 MG TABLET (FP) PO ONE (21:00)
[2021-06-12 22:27] LABS: EPI CELLS 9 /uL (0-25.1); HYALINE CASTS 1 /uL (0-3.1); URINE APPEARANCE TURBID; URINE BACTERIA 1531 /uL (0-1359); URINE BILIRUBIN NEGATIVE (NEGATIVE); URINE COLOR YELLOW; URINE GLUCOSE (UA) NEGATIVE (NEGATIVE); URINE KETONE NEGATIVE (NEGATIVE); URINE LEUK ESTERASE 3+ (NEGATIVE); URINE NITRITE POSITIVE (NEGATIVE); URINE PROTEIN 2+ (NEGATIVE); URINE RBC 4122 /uL (0-23.9); URINE WBC 5104 /uL (0-25.8)
[2021-06-12] MEDS: MELATONIN 5 MG TABLETS PO SCH (22:44)
[2021-06-12] MEDS: THIAMINE HCL 100 MG TABLET (FP) PO SCH (22:44)
[2021-06-13] MEDS: METHOCARBAMOL 500 MG TABLET PO PRN ×2 (08:49→16:52)
[2021-06-13] MEDS ORDERED: methaDONE HCL 10 MG TABLET (FOR DETOX USE ONLY) PO ONE (10:00)
[2021-06-13] MEDS: PANTOPRAZOLE 40 MG TABLET PO SCH (10:53)
[2021-06-13] MEDS: PRENATAL VITAMINS W/ FOLIC ACID TABLET (FP) PO SCH (10:54)
[2021-06-13] MEDS: GABAPENTIN 300 MG CAPSULE PO SCH ×2 (10:54→22:09)
[2021-06-13] MEDS: NICOTINE 14 MG/24 HOURS TOPICAL PATCH TD SCH (10:54)
[2021-06-13] MEDS: cloNIDine HCL 0.1 MG TABLET PO PRN ×2 (16:52→22:09)
[2021-06-13] MEDS ORDERED: metroNIDAZOLE 0.75% VAGINAL GEL 70 GM TUBE VG ONE (19:24)
[2021-06-13] MEDS: hydrOXYzine PAMOATE 25 MG CAPSULE (FP) PO PRN ×2 (19:28→22:09)
[2021-06-13] MEDS ORDERED: diazePAM 5 MG TABLET PO ONE (20:08)
[2021-06-13] MEDS: THIAMINE HCL 100 MG TABLET (FP) PO SCH (22:10)
[2021-06-13] MEDS: MELATONIN 5 MG TABLETS PO SCH (22:10)
[2021-06-14] MEDS: hydrOXYzine PAMOATE 25 MG CAPSULE (FP) PO PRN (07:00)
[2021-06-14 09:40] VITALS: BP 113/76; PULSE 91; TEMP 96.9
== END 2021-06-14 11:38 | disposition home or self-care (01) | DRG 773 ==
LOC: YASAS 12:35 → Y3N 15:32
PROVIDERS: ADMIT Allergy & Immunology; ATTEND Allergy & Immunology
PROC: HZ2ZZZZ Detoxification Services for Substance Abuse Treatment (ICD-10-PCS; principal; 2021-06-09)
DX: F11.23 Opioid dependence with withdrawal (principal); F14.20 Cocaine dependence, uncomplicated; F17.210 Nicotine dependence, cigarettes, uncomplicated; F19.24 Other psychoactive substance dependence with psychoactive substance-induced mood disorder; F31.9 Bipolar disorder, unspecified; F41.9 Anxiety disorder, unspecified; G62.9 Polyneuropathy, unspecified; J45.40 Moderate persistent asthma, uncomplicated; M79.7 Fibromyalgia; M54.50 Low back pain, unspecified; G89.29 Other chronic pain; N39.0 Urinary tract infection, site not specified; B96.20 Unspecified Escherichia coli [E. coli] as the cause of diseases classified elsewhere; Z86.59 Personal history of other mental and behavioral disorders; Z87.19 Personal history of other diseases of the digestive system; Z88.0 Allergy status to penicillin
CPT/HCPCS: 36415; 80053; 81003; 81025; 85027; 87086; 87186; 93005; 93010; C9803; J0735; U0003; U0005